=== PATIENT | male | born 1970 | race Asian ===

== ENCOUNTER → 2016-11-16 | Outpatient (CLI) | payer MEDICARE, OTHER ==
[~2016-11-16] MED LIST: COZAAR100 MG PO
[2016-11-16 11:46] LABS: HEMOGLOBIN 15.2 gm/dl (14.0-17.5); RED BLOOD COUNT 4.54 M/UL (4.20-5.50); WHITE BLOOD COUNT 6.1 K/UL (4.5-11.0)
== END ==
LOC: LAB 09:32
PROVIDERS: Nurse Practitioner
DX: Z51.81 Encounter for therapeutic drug level monitoring (principal); Z94.0 Kidney transplant status; Z79.899 Other long term (current) drug therapy; R79.89 Other specified abnormal findings of blood chemistry; N18.9 Chronic kidney disease, unspecified; D63.1 Anemia in chronic kidney disease; R39.9 Unspecified symptoms and signs involving the genitourinary system
CPT/HCPCS: 36415; 80069; 80197; 82570; 83735; 84156; 85025

== ENCOUNTER → 2016-11-30 | Outpatient (CLI) | payer MEDICARE, OTHER ==
[2016-11-30 10:59] LABS: HEMOGLOBIN 14.4 gm/dl (14.0-17.5); RED BLOOD COUNT 4.27 M/UL (4.20-5.50); WHITE BLOOD COUNT 6.2 K/UL (4.5-11.0)
== END ==
LOC: LAB 09:18
PROVIDERS: Nurse Practitioner
DX: Z48.22 Encounter for aftercare following kidney transplant (principal); R79.89 Other specified abnormal findings of blood chemistry; R39.9 Unspecified symptoms and signs involving the genitourinary system; N18.9 Chronic kidney disease, unspecified; D63.1 Anemia in chronic kidney disease; Z94.0 Kidney transplant status; Z79.899 Other long term (current) drug therapy
CPT/HCPCS: 36415; 80069; 80197; 82043; 82570; 83735; 84156; 85025; 87497

== ENCOUNTER → 2017-02-01 | Outpatient (CLI) | payer MEDICARE, OTHER ==
[2017-02-01 10:35] LABS: HEMOGLOBIN 15.3 gm/dl (14.0-17.5); RED BLOOD COUNT 4.74 M/UL (4.20-5.50); WHITE BLOOD COUNT 5.9 K/UL (4.5-11.0)
[2017-02-01 10:55] LABS: BUN/CREATININE RATIO 20 (0-10)
== END ==
LOC: LAB 08:36
PROVIDERS: Internal Medicine
DX: D64.9 Anemia, unspecified (principal); R79.89 Other specified abnormal findings of blood chemistry; Z94.0 Kidney transplant status
CPT/HCPCS: 36415; 80048; 80061; 80076; 80197; 82570; 83036; 83735; 84100; 84156; 85025; 87497

== ENCOUNTER → 2017-05-12 | Outpatient (CLI) | payer MEDICARE, OTHER ==
[2017-05-12 09:24] LABS: HEMOGLOBIN 14.8 gm/dl (14.0-17.5); RED BLOOD COUNT 4.83 M/UL (4.20-5.50); WHITE BLOOD COUNT 5.2 K/UL (4.5-11.0)
== END ==
LOC: LAB 05-11 08:11
PROVIDERS: Nurse Practitioner
DX: Z51.81 Encounter for therapeutic drug level monitoring (principal); Z94.0 Kidney transplant status; Z79.899 Other long term (current) drug therapy
CPT/HCPCS: 36415; 80053; 80061; 80197; 82248; 82570; 83036; 83735; 84100; 84156; 85025

== ENCOUNTER → 2020-09-09 | Outpatient (CLI) | payer OTHER ==
[2020-09-09 08:45] LABS: HEMOGLOBIN 15.3 gm/dl (14.0-17.5); RED BLOOD COUNT 5.06 M/UL (4.20-5.50); WHITE BLOOD COUNT 6.4 K/UL (4.5-11.0)
[2020-09-09 09:11] LABS: BUN/CREATININE RATIO 23 (0-10)
[2020-09-10 07:11] LABS: VITAMIN D, 25-HYDROXY 35.1 ng/mL (30.0-100.0)
[2020-09-10 16:11] LABS: TACROLIMUS BY IMMUNOASSAY 5.3 ng/mL (2.0-20.0)
== END ==
LOC: LAB 08:10
PROVIDERS: Internal Medicine Nephrology
DX: E83.42 Hypomagnesemia (principal); D75.1 Secondary polycythemia; N25.81 Secondary hyperparathyroidism of renal origin; Z94.0 Kidney transplant status
CPT/HCPCS: 36415; 80053; 80197; 82570; 83735; 83970; 84100; 84156; 85027

== ENCOUNTER → 2020-12-11 | Outpatient (CLI) | payer OTHER ==
[2020-12-11 10:59] LABS: BUN/CREATININE RATIO 20 (0-10)
[2020-12-12 08:13] LABS: VITAMIN D, 25-HYDROXY 29.6 ng/mL (30.0-100.0)
[2020-12-12 14:13] LABS: TACROLIMUS BY IMMUNOASSAY 7.3 ng/mL (2.0-20.0)
== END ==
LOC: LAB 08:58
PROVIDERS: Internal Medicine Nephrology
DX: N25.81 Secondary hyperparathyroidism of renal origin (principal); Z94.0 Kidney transplant status
CPT/HCPCS: 36415; 80053; 80197; 82570; 84156

== ENCOUNTER → 2021-03-31 | Outpatient (CLI) | payer OTHER ==
[2021-03-31 11:09] LABS: HEMOGLOBIN 16.2 gm/dl (14.0-17.5); RED BLOOD COUNT 5.27 M/UL (4.20-5.50); WHITE BLOOD COUNT 5.8 K/UL (4.5-11.0)
[2021-03-31 11:33] LABS: BUN/CREATININE RATIO 17 (0-10)
[2021-04-01 07:11] LABS: VITAMIN D, 25-HYDROXY 69.5 ng/mL (30.0-100.0)
[2021-04-01 14:14] LABS: TACROLIMUS BY IMMUNOASSAY 8.7 ng/mL (2.0-20.0)
== END ==
LOC: LAB 09:38
PROVIDERS: Internal Medicine Nephrology
DX: N25.81 Secondary hyperparathyroidism of renal origin (principal); N18.9 Chronic kidney disease, unspecified; Z94.0 Kidney transplant status
CPT/HCPCS: 36415; 80053; 80197; 82570; 83970; 84156; 85027

== ENCOUNTER → 2021-04-09 | Outpatient (CLI) | payer OTHER | LOC: LAB 08:13 | DX: Z09 Encounter for follow-up examination after completed treatment for conditions other than malignant neoplasm (principal); Z94.0 Kidney transplant status | CPT/HCPCS: 36415; 80197 ==

== ENCOUNTER → 2021-07-08 | Outpatient (CLI) | payer OTHER ==
[2021-07-08 09:44] LABS: HEMOGLOBIN 15.7 gm/dl (14.0-17.5); RED BLOOD COUNT 5.08 M/UL (4.20-5.50); WHITE BLOOD COUNT 5.7 K/UL (4.5-11.0)
[2021-07-08 10:18] LABS: BUN/CREATININE RATIO 21 (0-10)
== END ==
LOC: LAB 08:04
PROVIDERS: Internal Medicine Nephrology
DX: N18.9 Chronic kidney disease, unspecified (principal); D63.1 Anemia in chronic kidney disease; N25.81 Secondary hyperparathyroidism of renal origin; Z94.0 Kidney transplant status
CPT/HCPCS: 36415; 80053; 80197; 82570; 83970; 84156; 85027

== ENCOUNTER → 2021-07-30 | Outpatient (CLI) | payer OTHER | LOC: LAB 08:08 | DX: Z48.22 Encounter for aftercare following kidney transplant (principal) | CPT/HCPCS: 36415; 80197 ==

== ENCOUNTER → 2021-10-08 | Outpatient (CLI) | payer OTHER ==
[2021-10-08 09:50] LABS: HEMOGLOBIN 14.2 gm/dl (14.0-17.5); RED BLOOD COUNT 4.82 M/UL (4.20-5.50)
[2021-10-09 08:15] LABS: A/G RATIO 1.7 (1.2-2.2); BILIRUBIN, TOTAL 0.6 mg/dL (0.0-1.2); CALCIUM, SERUM 9.4 mg/dL (8.7-10.2); CREATININE, SERUM 0.75 mg/dL (0.76-1.27); GLOBULIN, TOTAL 2.6 g/dL (1.5-4.5); MAGNESIUM 1.7 mg/dL (1.6-2.3); POTASSIUM, SERUM 4.6 mmol/L (3.5-5.2); PROTEIN, TOTAL, SERUM 6.9 g/dL (6.0-8.5)
[2021-10-09 09:15] LABS: VITAMIN D, 25-HYDROXY 45.3 ng/mL (30.0-100.0)
[2021-10-09 14:12] LABS: TACROLIMUS BY IMMUNOASSAY 4.2 ng/mL (2.0-20.0)
== END ==
LOC: LAB 08:20
PROVIDERS: Internal Medicine Nephrology
DX: N18.9 Chronic kidney disease, unspecified (principal); D63.1 Anemia in chronic kidney disease; N25.81 Secondary hyperparathyroidism of renal origin; Z94.0 Kidney transplant status
CPT/HCPCS: 36415; 80053; 80197; 82570; 83735; 83970; 84100; 84156; 85027

== ENCOUNTER → 2022-02-11 | Outpatient (CLI) | payer OTHER ==
[2022-02-11 08:27] LABS: HEMOGLOBIN 14.7 gm/dl (14.0-17.5); RED BLOOD COUNT 5.19 M/UL (4.20-5.50); WHITE BLOOD COUNT 4.9 K/UL (4.5-11.0)
[2022-02-11 08:42] LABS: BUN/CREATININE RATIO 25 (0-10)
== END ==
LOC: LAB 07:54
PROVIDERS: Internal Medicine Nephrology
DX: N18.9 Chronic kidney disease, unspecified (principal); D63.1 Anemia in chronic kidney disease; Z94.0 Kidney transplant status
CPT/HCPCS: 36415; 80053; 80197; 82570; 84156; 85027